=== PATIENT | male | born 1985 | race Caucasian/White ===

== ENCOUNTER 2018-09-01 10:16 | Outpatient (CLI) | payer OTHER ==
[2018-09-01 10:40] LABS: eGFR (Non-African) > 60
[2018-09-01 10:54] LABS: MEAN CORPUSCULAR HEMOGLOBIN 29.9 pg (28.0-34.0)
[2018-09-01 10:56] LABS: EOSINOPHILS % 1 % (0-7); MONOCYTES % 13 % (0-11); SEGMENTED NEUTROPHILS % 55 % (39-79)
== END 2018-09-01 10:17 ==
LOC: LAB 10:16
PROVIDERS: ATTEND General Practice
DX: J11.1 Influenza due to unidentified influenza virus with other respiratory manifestations (principal)
CPT/HCPCS: 36415; 80053; 85025